=== PATIENT | female | born 1950 | race African-American/Black ===

== ENCOUNTER 2020-04-06 08:16 | Emergency (ER) | payer MEDICAID ==
[~2020-04-06] VITALS: Ht 162.6 cm; Wt 90.0 kg
[2020-04-06] MEDS ORDERED: MORPHINE SULFATE 4 MG/ML CPJ (NOT FOR IM USE) IV STA (08:45)
[2020-04-06 08:56] LABS: HEMATOCRIT. 37.1 % (36.0-48.0); HEMOGLOBIN. 11.8 g/dL (12.0-16.0); MEAN CORPUSCULAR HEMOGLOBIN 29.1 pg (28.0-32.0); MEAN CORPUSCULAR VOLUME 91.2 fL (81.0-99.0); MEAN PLATELET VOLUME 8.8 fl (7.4-10.4); PLATELET 235 x1000/uL (130-400); RED BLOOD CELL COUNT 4.07 mill/uL (4.2-5.4); RED CELL DISTRIBUTION WIDTH 14.9 % (11.6-14.6)
[2020-04-06 09:01] LABS: CHLORIDE 112 mEq/L (98-107)
[2020-04-06 09:03] LABS: INR 1.1; PROTHROMBIN TIME 11.4 sec (9.6-11.0)
[2020-04-06 10:01] LABS: PLATELET ESTIMATE NORMAL
[2020-04-06] MEDS ORDERED: TOPUD MT (11:22)
[2020-04-06] MEDS ORDERED: KETOROLAC 30MG/ML VIAL IV ONE (13:00)
[2020-04-06 15:00] VITALS: BP 128/61
== END 2020-04-06 15:30 | disposition short-term general hospital (02) ==
LOC: ER 08:16 → CANBEDREQ 18:49
DX: M79.651 Pain in right thigh (principal); R62.7 Adult failure to thrive; E11.9 Type 2 diabetes mellitus without complications; I87.8 Other specified disorders of veins; Z68.34 Body mass index [BMI] 34.0-34.9, adult; Z79.899 Other long term (current) drug therapy; Z60.2 Problems related to living alone
CPT/HCPCS: 36415; 70450; 73552; 80053; 85025; 85610; 93005; 93922; 96374; 96375; 99285; J1885; J2270; Z7610

== ENCOUNTER 2025-01-16 09:54 | Inpatient (IN) | payer MEDICARE, MEDICAID ==
[~2025-01-16] VITALS: Ht 165.1 cm; Wt 106.6 kg
[~2025-01-16 09:54] MED LIST: TOPUD MT
[2025-01-16] MEDS: PIPERACILLIN/TAZO 3.375G/50ML 50 ML IV ONE (10:17)
[2025-01-16] MEDS: SODIUM CHLORIDE 0.9% (SEPSIS BOLUS) IV ONE (10:17)
[2025-01-16 10:22] LABS: HEMATOCRIT. 39.7 % (36.0-48.0); HEMOGLOBIN. 12.1 g/dL (12.0-16.0); MEAN PLATELET VOLUME 8.4 fl (7.4-10.4); PLATELET 241 x1000/uL (130-400); RED BLOOD CELL COUNT 4.41 mill/uL (4.2-5.4); RED CELL DISTRIBUTION WIDTH 17.3 % (11.6-14.6)
[2025-01-16 10:35] LABS: CREATININE 0.9 mg/dL (0.6-1.0)
[2025-01-16 10:36] LABS: PROTEIN TOTAL 6.4 g/dL (6.0-8.3); UREA NITROGEN BLOOD 16 mg/dL (9-23)
[2025-01-16 10:38] LABS: ASPARTATE AMINOTRANSFERASE 10 IU/L (<34); BILIRUBIN DIRECT 0.2 mg/dL (<=3.0); BILIRUBIN TOTAL 0.4 mg/dL (0.1-1.0)
[2025-01-16 10:44] LABS: INR 1.1
[2025-01-16 10:46] LABS: EOSINOPHILS % MANUAL 2.0 % (0.0-5.0); LYMPHOCYTES % MANUAL 10.0 % (20.0-60.0); MONOCYTES % MANUAL 6.0 % (2.0-8.0); NEUTROPHILS % MANUAL 82.0 % (45.0-75.0); PLATELET ESTIMATE NORMAL
[2025-01-16] MEDS: VANCOMYCIN 1G PREMIX 200 ML IV ONE (10:53)
[2025-01-16 13:20] LABS: CLARITY URINE CLOUDY (CLEAR); COLOR URINE YELLOW (YELLOW); GLUCOSE URINE NEGATIVE (NEGATIVE); KETONES URINE TRACE (NEGATIVE); LEUKOCYTE ESTERASE URINE 3+ (NEGATIVE); NITRITE URINE NEGATIVE (NEGATIVE); OCCULT BLOOD URINE 1+ (NEGATIVE); PH URINE 6.5 (4.5-8.0); PROTEIN URINE 2+ (NEGATIVE); SPECIFIC GRAVITY URINE 1.014 (1.005-1.030); UROBILINOGEN URINE 0.2 E.U./dL (0.2-1.0)
[2025-01-16 14:12] LABS: BACTERIA URINE 3+; SQUAMOUS EPITHELIAL CELL URINE 2+ /lpf (RARE/1+); WBC URINE 25-50 /hpf (0-2)
[2025-01-16 14:13] LABS: RBC URINE 0-2 /hpf (0-2)
[2025-01-16 14:45] VITALS: BP_SYST 124; BP_SYST 155; BP_DIAS 70; BP_DIAS 76; PULSE 75; RESP 19; TEMP 36.6; O2SAT 98
[2025-01-16 15:00] VITALS: BP 155/70; PULSE 81; RESP 20; TEMP 36.5848
[2025-01-16] MEDS ORDERED: ACETAMINOPHEN 325MG TABLET PO PRN (15:30)
[2025-01-16] MEDS ORDERED: ONDANSETRON HCL 4MG/2ML INJ IV PRN (15:30)
[2025-01-16] MEDS ORDERED: IPRATROPIUM/ALBUTEROL 0.5-3(2.5)MG/3ML NEB HHN PRN (16:00)
[2025-01-16] MEDS ORDERED: THROAT LOZENGES-BENZOCAINE/MENTH/CETYLPYRD CL LOZENGES MM PRN (16:15)
[2025-01-16 16:19] LABS: BG BASE EXCESS -0.5 mmol/L (-2.0-3.0); BG CARBOXYHEMOGLOBIN 2.0 % (0.5-1.5); BG DEOXYHEMOGLOBIN 8.6 % (0.0-5.0); BG FLOW(L/min) 6.00 L/min; BG FRACTION INSPIRED OXYGEN 44; BG HCO3 ACT 27.4 mmol/L (21.0-28.0); BG METHEMOGLOBIN 0.1 % (0.5-1.5); BG OXYGEN SATURATION 91.2 % (94.0-98.0); BG OXYHEMOGLOBIN 89.3 % (94.0-98.0); BG PCO2 59.6 mmHg (32.0-45.0); BG PH 7.280 (7.350-7.450); BG PO2 66.5 mmHg (83.0-108.0); BG SAMPLE SITE LEFT RADIAL; BG TOTAL HEMOGLOBIN 13.0 g/dL (12.0-16.0); BG VENT MODE NASAL CANNULA
[2025-01-16] MEDS: BLOOD SUGAR DIAGNOSTIC STRIP TEST SCH (17:10)
[2025-01-16] MEDS: INSULIN LISPRO 100 UNITS/ML SUBCUT SCH (17:40)
[2025-01-16] MEDS: FUROSEMIDE 40MG/4ML VIAL IVP NR (18:53)
[2025-01-16 20:00] VITALS: BP 138/45; PULSE 116; RESP 16; TEMP 36.6; O2SAT 90
[2025-01-16 21:45] VITALS: O2SAT 97
[2025-01-16 22:03] VITALS: PULSE 104; RESP 20; O2SAT 98
[2025-01-16] MEDS: IPRATROPIUM/ALBUTEROL 0.5-3(2.5)MG/3ML NEB HHN SCH (22:03)
[2025-01-16] MEDS: DEXTROSE 50% WATER 50ML SYRINGE IV PRN (22:05)
[2025-01-16] MEDS: VANCOMYCIN 750MG PREMIX 150 ML IV SCH (22:26)
[2025-01-16] MEDS: GUAIFENESIN 600MG ER TABLET PO SCH (22:35)
[2025-01-16] MEDS: ENOXAPARIN 40MG/0.4ML SYR SUBCUT SCH (22:37)
[2025-01-17] VITALS (15 sets, daily range): BP systolic 104–139; BP diastolic 53–74; PULSE 102–129; RESP 12–33; TEMP 36.6–37.6; O2SAT 91–99
[2025-01-17] MEDS: ACETAMINOPHEN 325MG TABLET PO PRN (04:14)
[2025-01-17 07:48] LABS: HEMATOCRIT. 39.3 % (36.0-48.0); HEMOGLOBIN. 11.8 g/dL (12.0-16.0); MEAN PLATELET VOLUME 8.6 fl (7.4-10.4); PLATELET 223 x1000/uL (130-400); RED BLOOD CELL COUNT 4.34 mill/uL (4.2-5.4); RED CELL DISTRIBUTION WIDTH 17.0 % (11.6-14.6)
[2025-01-17 08:01] LABS: CREATININE 0.6 mg/dL (0.6-1.0)
[2025-01-17 08:02] LABS: UREA NITROGEN BLOOD 9 mg/dL (9-23)
[2025-01-17 08:04] LABS: PHOSPHORUS 4.5 mg/dL (2.5-4.9)
[2025-01-17 08:05] LABS: TROPONIN I HIGH SENSITIVITY 113 ng/L (3.0-34)
[2025-01-17] MEDS: IOHEXOL-350 100 ML BOTTLE ONE (08:21)
[2025-01-17 09:12] LABS: BG BASE EXCESS 4.9 mmol/L (-2.0-3.0); BG CARBOXYHEMOGLOBIN 2.2 % (0.5-1.5); BG DEOXYHEMOGLOBIN 9.8 % (0.0-5.0); BG FLOW(L/min) 20.00 L/min; BG FRACTION INSPIRED OXYGEN 40; BG HCO3 ACT 32.6 mmol/L (21.0-28.0); BG METHEMOGLOBIN 0.1 % (0.5-1.5); BG OXYGEN SATURATION 90.0 % (94.0-98.0); BG OXYHEMOGLOBIN 87.9 % (94.0-98.0); BG PCO2 64.5 mmHg (32.0-45.0); BG PH 7.322 (7.350-7.450); BG PO2 60.6 mmHg (83.0-108.0); BG SAMPLE SITE LEFT RADIAL; BG TOTAL HEMOGLOBIN 12.3 g/dL (12.0-16.0); BG VENT MODE HIGH FLOW
[2025-01-17] MEDS: MAGNESIUM 1 G PREMIX 100 ML IV SCH (11:10)
[2025-01-17] MEDS: INSULIN GLARGINE 100 UNITS/ML SUBCUT SCH (11:12)
[2025-01-17 11:34] LABS: TROPONIN I HIGH SENSITIVITY 103 ng/L (3.0-34)
[2025-01-17] MEDS: ASPIRIN 81MG TABLET PO SCH (13:20)
[2025-01-17] MEDS: CEFTRIAXONE 1GM/50ML 50 ML IV SCH (14:47)
[2025-01-17 17:09] LABS: CREATINE KINASE MB FRACTION 0.7 ng/mL (0.5-3.6)
[2025-01-17 17:10] LABS: TRIGLYCERIDE 69.0 mg/dL (0-150)
[2025-01-17 17:11] LABS: LDL CHOLESTEROL 39.0 mg/dL (5-100)
[2025-01-17 17:15] LABS: T4 FREE 0.99 ng/dL (0.89-1.76)
[2025-01-17] MEDS: VANCOMYCIN 1.25GM/250ML 250 ML IV SCH (21:48)
[2025-01-18] VITALS (18 sets, daily range): BP systolic 103–139; BP diastolic 51–72; PULSE 111–126; RESP 11–36; TEMP 36.2–38.1; O2SAT 94–100
[2025-01-18 08:07] LABS: BASOPHILS % 0.2 % (0.0-2.0); EOSINOPHILS % 0.7 % (0.0-5.0); HEMATOCRIT. 36.7 % (36.0-48.0); HEMOGLOBIN. 11.2 g/dL (12.0-16.0); LYMPHOCYTES % 7.6 % (20.0-50.0); MEAN PLATELET VOLUME 8.4 fl (7.4-10.4); MONOCYTES % 8.0 % (2.0-8.0); NEUTROPHILS % 83.5 % (40.0-76.0); PLATELET 209 x1000/uL (130-400); RED BLOOD CELL COUNT 4.04 mill/uL (4.2-5.4); RED CELL DISTRIBUTION WIDTH 17.3 % (11.6-14.6)
[2025-01-18 08:15] LABS: CREATININE 0.6 mg/dL (0.6-1.0)
[2025-01-18 08:16] LABS: CREATINE KINASE MB FRACTION 0.8 ng/mL (0.5-3.6); UREA NITROGEN BLOOD 12 mg/dL (9-23)
[2025-01-18 08:18] LABS: PHOSPHORUS 3.6 mg/dL (2.5-4.9)
[2025-01-18 09:32] LABS: BG BASE EXCESS 4.2 mmol/L (-2.0-3.0); BG CARBOXYHEMOGLOBIN 1.5 % (0.5-1.5); BG DEOXYHEMOGLOBIN 2.1 % (0.0-5.0); BG FLOW(L/min) 5.00 L/min; BG FRACTION INSPIRED OXYGEN 40; BG HCO3 ACT 33.1 mmol/L (21.0-28.0); BG METHEMOGLOBIN 0.2 % (0.5-1.5); BG OXYGEN SATURATION 97.9 % (94.0-98.0); BG OXYHEMOGLOBIN 96.2 % (94.0-98.0); BG PCO2 75.0 mmHg (32.0-45.0); BG PH 7.263 (7.350-7.450); BG PO2 116.5 mmHg (83.0-108.0); BG SAMPLE SITE RIGHT RADIAL; BG TOTAL HEMOGLOBIN 11.6 g/dL (12.0-16.0); BG VENT MODE NASAL CANNULA
[2025-01-18] MEDS: FUROSEMIDE 40MG/4ML VIAL IVP SCH (13:00)
[2025-01-18 15:53] LABS: LYMPHOCYTES % MANUAL 10.0 % (20.0-60.0); MONOCYTES % MANUAL 7.0 % (2.0-8.0); NEUTROPHILS % MANUAL 83.0 % (45.0-75.0); PLATELET ESTIMATE NORMAL
[2025-01-18] MEDS ORDERED: LORAZEPAM 2MG/ML UD SYRINGE IV PRN (16:06)
[2025-01-18] MEDS: MEROPENEM 1G/100ML 100 ML IV SCH (18:45)
[2025-01-19] VITALS (24 sets, daily range): BP systolic 96–173; BP diastolic 50–85; PULSE 100–122; RESP 15–35; TEMP 36.5–36.8; O2SAT 88–100
[2025-01-19 00:55] LABS: BG BASE EXCESS 7.1 mmol/L (-2.0-3.0); BG CARBOXYHEMOGLOBIN 0.8 % (0.5-1.5); BG DEOXYHEMOGLOBIN 9.5 % (0.0-5.0); BG FRACTION INSPIRED OXYGEN 36; BG HCO3 ACT 35.0 mmol/L (21.0-28.0); BG METHEMOGLOBIN 0.3 % (0.5-1.5); BG OXYGEN SATURATION 90.4 % (94.0-98.0); BG OXYHEMOGLOBIN 89.4 % (94.0-98.0); BG PCO2 67.6 mmHg (32.0-45.0); BG PH 7.332 (7.350-7.450); BG PO2 60.5 mmHg (83.0-108.0); BG SAMPLE SITE LEFT RADIAL; BG TOTAL HEMOGLOBIN 11.7 g/dL (12.0-16.0); BG VENT MODE NASAL CANNULA
[2025-01-19 07:11] LABS: HEMATOCRIT. 37.5 % (36.0-48.0); HEMOGLOBIN. 11.5 g/dL (12.0-16.0); MEAN PLATELET VOLUME 8.4 fl (7.4-10.4); PLATELET 202 x1000/uL (130-400); RED BLOOD CELL COUNT 4.15 mill/uL (4.2-5.4); RED CELL DISTRIBUTION WIDTH 16.9 % (11.6-14.6)
[2025-01-19 07:34] LABS: CREATININE 0.6 mg/dL (0.6-1.0)
[2025-01-19 07:35] LABS: UREA NITROGEN BLOOD 9 mg/dL (9-23)
[2025-01-19 07:37] LABS: PHOSPHORUS 3.2 mg/dL (2.5-4.9)
[2025-01-19] MEDS ORDERED: FUROSEMIDE 40MG/4ML VIAL IVP SCH (09:00)
[2025-01-19] MEDS ORDERED: BISACODYL 5MG TABLET PO PRN (09:15)
[2025-01-19 10:01] LABS: BG BASE EXCESS 6.2 mmol/L (-2.0-3.0); BG CARBOXYHEMOGLOBIN 1.1 % (0.5-1.5); BG DEOXYHEMOGLOBIN 11.2 % (0.0-5.0); BG FRACTION INSPIRED OXYGEN 40; BG HCO3 ACT 33.8 mmol/L (21.0-28.0); BG METHEMOGLOBIN 0.3 % (0.5-1.5); BG OXYGEN SATURATION 88.6 % (94.0-98.0); BG OXYHEMOGLOBIN 87.4 % (94.0-98.0); BG PCO2 64.3 mmHg (32.0-45.0); BG PH 7.338 (7.350-7.450); BG PO2 56.1 mmHg (83.0-108.0); BG SAMPLE SITE LEFT RADIAL; BG TOTAL HEMOGLOBIN 11.9 g/dL (12.0-16.0); BG VENT MODE NASAL CANNULA
[2025-01-19] MEDS ORDERED: LACTULOSE 20G/30ML UDC PO SCH (14:00)
[2025-01-19 15:15] LABS: LYMPHOCYTES % MANUAL 5.0 % (20.0-60.0); MONOCYTES % MANUAL 11.0 % (2.0-8.0); NEUTROPHILS % MANUAL 84.0 % (45.0-75.0); PLATELET ESTIMATE NORMAL
[2025-01-19] MEDS: CLONIDINE 0.2MG TABLET PO PRN (19:12)
== END 2025-01-19 21:51 | disposition short-term general hospital (02) | DRG 291 ==
LOC: ER 09:54 → 8WST 12:44 → EDBEDREQTM 12:47 → EDBEDREQ 12:47 → 5EST 21:19
PROVIDERS: ADMIT Student in an Organized Health Care Education/Training Program; ATTEND Student in an Organized Health Care Education/Training Program
PROC: 5A0945A Assistance with Respiratory Ventilation, 24-96 Consecutive Hours, High Flow/Velocity Cannula (ICD-10-PCS; principal; 2025-01-16)
PROC: 5A09357 Assistance with Respiratory Ventilation, Less than 24 Consecutive Hours, Continuous Positive Airway Pressure (ICD-10-PCS; 2025-01-19)
DX: I13.0 Hypertensive heart and chronic kidney disease with heart failure and stage 1 through stage 4 chronic kidney disease, or unspecified chronic kidney disease (principal); I50.33 Acute on chronic diastolic (congestive) heart failure; J96.01 Acute respiratory failure with hypoxia; J18.9 Pneumonia, unspecified organism; G93.40 Encephalopathy, unspecified; F20.89 Other schizophrenia; E87.29 Other acidosis; N17.9 Acute kidney failure, unspecified; N39.0 Urinary tract infection, site not specified; B96.20 Unspecified Escherichia coli [E. coli] as the cause of diseases classified elsewhere; E11.22 Type 2 diabetes mellitus with diabetic chronic kidney disease; N18.9 Chronic kidney disease, unspecified; I35.0 Nonrheumatic aortic (valve) stenosis; Z16.12 Extended spectrum beta lactamase (ESBL) resistance; J98.11 Atelectasis; Z20.822 Contact with and (suspected) exposure to COVID-19; E78.5 Hyperlipidemia, unspecified; E87.5 Hyperkalemia; Z74.01 Bed confinement status; Z79.4 Long term (current) use of insulin; Z86.73 Personal history of transient ischemic attack (TIA), and cerebral infarction without residual deficits; Z88.0 Allergy status to penicillin
CPT/HCPCS: 36415; 36600; 71045; 71275; 80048; 80061; 80076; 80202; 81003; 82375; 82550; 82553; 82805; 82962; 83036; 83605; 83735; 83880; 84100; 84145; 84439; 84443; 84484; 85025; 85379; 87077; 87186; 87426; 93005; 93306; 93308; 93970; 94070; 94640; 94660; 94664; 96365; 98960; 99291; A4606; J0696; J1650; J1815; J1938; J2185; J2543; J3373; J3475; J7030; Q9967